=== PATIENT | female | born 1960 ===

== ENCOUNTER 2018-01-29 15:14 | Inpatient (IN) | payer MEDICAID, OTHER ==
[2018-01-29] MEDS ORDERED: Sodium Chloride 0.9% 1,000 ML IV SCH (17:00)
--- NOTE | 2018-01-29 17:10 | ED PDOC ---
Arrival/HPI - General Chief Complaint: GI Problem Time Seen by Provider: 01/29/18 16:31 - History of Present Illness Narrative History of Present Illness (Text): 57 yr old female w/ hx of HTN p/w bloody stools and abdominal pain. Pt notes abdominal pain x3 days, along with bloody stools. She notes intermittent bloody, non dark stools which do not fill the toilet bowel. No chest pain or shortness of breath. No constipation or diarrhea. No headache, nausea, vomiting, chest pain, fever, chills or night sweats. No trauma. No urinary complaints. No recent travel abroad or abx. No blood thinners. No other complaints. PMD: [place] Past Medical History - Infectious Disease Hx of Infectious Diseases: None - Tetanus Immunization Tetanus Immunization: Unknown - Reproductive Menopause: Yes - Cardiac Hx Hypertension: Yes Hx Pacemaker: No - Pulmonary Hx Respiratory Disorders: No - Neurological Hx Paralysis: No - Hematological/Oncological Hx Blood Transfusions: No Hx Blood Transfusion Reaction: No - Musculoskeletal/Rheumatological Hx Musculoskeletal Disorders: No - Gastrointestinal Hx Gastroesophageal Reflux: Yes - Psychiatric Hx Emotional Abuse: No Hx Physical Abuse: No Hx Substance Use: No - Anesthesia Hx Anesthesia Reactions: No Hx Malignant Hyperthermia: No - Suicidal Assessment Feels Threatened In Home Enviroment: No Family/Social History Family/Social History: Unknown Family HX Smoking Status: Never Smoked Hx Alcohol Use: No Hx Substance Use: No Hx Substance Use Treatment: No Allergies/Home Meds Allergies/Adverse Reactions: Allergies No Known Allergies Allergy (Verified 12/15/12 17:02) Home Medications: Home Meds Medication Instructions Recorded Confirmed Losartan/Hydrochlorothiazide 1 tab PO DAILY 11/19/15 11/19/15 [Losartan-Hctz 50-12.5 mg Tab] RX: Aspirin [Ecotrin] 81 mg PO DAILY 11/19/15 11/19/15 Review of Systems - Review of Systems Constitutional: absent: Fatigue, Weight Change, Fevers, Night Sweats Eyes: absent: Vision Changes ENT: absent: Hearing Changes Respiratory: absent: SOB Cardiovascular: absent: Chest Pain Gastrointestinal: Abdominal Pain, Stool Changes. absent: Constipation, Diarrhea, Nausea, Vomiting Genitourinary Female: Normal. absent: Dysuria, Frequency, Hematuria, Urine Output Changes, Vaginal Bleeding, Vaginal Discharge Musculoskeletal: Normal Skin: Normal. absent: Rash, Pruritis, Skin Lesions Neurological: Normal. absent: Headache, Dizziness Endocrine: Normal Physical Exam Vital Signs Temp Pulse Resp BP Pulse Ox 01/29/18 16:07 99.4 F 98 H 18 122/75 98 Temperature: Afebrile Blood Pressure: Normal Pulse: Regular Respiratory Rate: Normal Appearance: Positive for: Well-Appearing, Non-Toxic Pain Distress: None Mental Status: Positive for: Alert and Oriented X 3 - Systems Exam Head: Present: Atraumatic, Normocephalic Pupils: Present: PERRL Extroacular Muscles: Present: EOMI Conjunctiva: Present: Normal Ears: Present: Normal Mouth: Present: Moist Mucous Membranes Neck: Present: Normal Range of Motion. No: Meningeal Signs Respiratory/Chest: Present: Clear to Auscultation, Good Air Exchange. No: Respiratory Distress Cardiovascular: Present: Regular Rate and Rhythm, Normal S1, S2. No: Murmurs Abdomen: Present: Tenderness (suprapubic). No: Distention, Normal Bowel Sounds, Peritoneal Signs Rectal: Present: Normal Rectal Tone, Other (+guaic). No: Fissures, Nodule/Mass/Lesions Back: Present: Normal Inspection. No: CVA Tenderness Upper Extremity: Present: Normal Inspection. No: Cyanosis, Edema Lower Extremity: Present: Normal Inspection. No: Edema, CALF TENDERNESS Neurological: Present: GCS=15, CN II-XII Intact, Speech Normal, Normal Cerebellar Funct Skin: Present: Warm, Dry Psychiatric: Present: Alert, Oriented x 3, Normal Affect Medical Decision Making ED Course and Treatment: 57 yr old female p/w abdominal pain + diarrhea concerning for diverticulitis. No recent abx or trauma or blood thinners. pending imaging and labs 01/30/18 1900 Signed out to oncoming physician pending CT - RAD Interpretation Radiology Orders: 01/29/18 16:49 ABDOMEN & PELVIS [ABD & PELVIS IV CONTRAST ONLY] [CT] Stat - Medication Orders Current Medication Orders: Sodium Chloride (Sodium Chloride 0.9%) 1,000 mls @ 100 mls/hr IV .Q10H JAYSHREE Discontinued Medications Famotidine (Pepcid) 20 mg IVP STAT STA Stop: 01/29/18 16:53 Disposition/Present on Arrival - Present on Arrival Any Indicators Present on Arrival: No History of DVT/PE: No History of Uncontrolled Diabetes: No Urinary Catheter: No History of Decub. Ulcer: No History Surgical Site Infection Following: None - Disposition Have Diagnosis and Disposition been Completed?: Yes Diagnosis: Abdominal pain, Colitis, Leukocytosis Disposition: HOSPITALIZED Disposition Time: 07:00 Patient Problems: Current Active Problems Problem Status Onset Abdominal pain Acute Colitis Acute Leukocytosis Acute Condition: STABLE
--- NOTE | 2018-01-29 18:30 | CARD ---
APPROVED REPORT Date of service: 01/29/2018 EKG Measurement Heart [id number] <Conclusion> Normal sinus rhythm Normal ECG
[2018-01-29 18:46] LABS: BASO # 0.05 K/mm3 (0.0-2.0); BASO % 0.2 % (0.0-3.0); EOS % 0.1 % (1.5-5.0); GRAN # 16.7 (1.4-6.5); GRAN % 81.3 % (50.0-68.0); LYMPH # 2.5 (1.2-3.4); LYMPH % 12.2 % (22.0-35.0); MEAN CELL VOLUME 92.3 fl (80.0-105.0); MEAN CORPUSCULAR HEMOGLOBIN 30.8 pg (25.0-35.0); MEAN CORPUSCULAR HGB CONC 33.4 g/dl (31.0-37.0); MEAN PLATELET VOLUME 10.2 fl (7.0-11.0); MONO # 1.3 (0.1-0.6); MONO % 6.2 % (1.0-6.0); RBC 4.54 10^6/uL (3.5-6.1); RED CELL DISTRIBUTION WIDTH 13.6 % (11.5-14.5); WHITE BLOOD COUNT 20.6 10^3/ul (4.5-11.0)
[2018-01-29 18:56] LABS: ALB/GLOB RATIO 1.3 (1.1-1.8); ALBUMIN 4.3 g/dL (3.0-4.8); ALT/SGPT 30 U/L (7-56); AST/SGOT 43 U/L (14-36); BLOOD UREA NITROGEN 13 mg/dL (7-21); CALCIUM 9.7 mg/dL (8.4-10.5); GFR NON-AFRICAN AMERICAN > 60; LIPASE 67 U/L (23-300)
--- NOTE | 2018-01-29 19:40 | ED PDOC ---
Physical Exam Vital Signs Reviewed: Yes Vital Signs Temp Pulse Resp BP Pulse Ox 01/29/18 16:07 99.4 F 98 H 18 122/75 98 Temperature: Afebrile Blood Pressure: Normal Pulse: Regular Respiratory Rate: Normal Appearance: Positive for: Well-Appearing, Non-Toxic, Comfortable Pain Distress: None Mental Status: Positive for: Alert and Oriented X 3 - Systems Exam Head: Present: Atraumatic, Normocephalic Pupils: Present: PERRL Extroacular Muscles: Present: EOMI Conjunctiva: Present: Normal Mouth: Present: Moist Mucous Membranes Neck: Present: Normal Range of Motion Respiratory/Chest: Present: Clear to Auscultation, Good Air Exchange. No: Resp iratory Distress, Accessory Muscle Use Cardiovascular: Present: Regular Rate and Rhythm, Normal S1, S2. No: Murmurs Abdomen: Present: Tenderness (Suprapubic). No: Distention, Peritoneal Signs Back: Present: Normal Inspection Upper Extremity: Present: Normal Inspection. No: Cyanosis, Edema Lower Extremity: Present: Normal Inspection. No: Edema Neurological: Present: GCS=15, CN II-XII Intact, Speech Normal Skin: Present: Warm, Dry, Normal Color. No: Rashes Psychiatric: Present: Alert, Oriented x 3, Normal Insight, Normal Concentration Medical Decision Making ED Course and Treatment: 01/29/18 19:10 Case endorsed to me by Dr. Zamorano, for pending CT of Abdomen/pelvis, reassessment and final disposition. Patient is a 57 year old female, who presented to the Emergency Department earlier today complaining of abdominal pain since 3 days. Patient is currently resting in bed in no acute distress. Patient denies any new medical complaints. 01/29/18 23:22 CT Abdomen and Pelvis Impression: 1. Diffuse left-sided colitis, which could be infections or inflammatory in nature. No evidence of obstruction or perforation. 2. Diffuse scattered diverticulosis. No discrete evidence of focal diverticulitis. 3. Small amount of pelvic ascites. 01/29/18 23:[address] Brewer and nuclear medical tech, who agree with plan. Patient will be admitted to [facility] for colitis, abdominal pain, and leukocytosis under the hospitalist service. - Lab Interpretations Lab Results: 01/29/18 18:31 01/29/18 18:31 Lab Results 01/29/18 18:31: Sodium 141, Potassium 4.1, Chloride 103, Carbon Dioxide 30, Anion Gap 13, BUN 13, Creatinine 0.7, Est GFR ( Amer) > 60, Est GFR (Non- Af Amer) > 60, Random Glucose 92, Calcium 9.7, Magnesium 2.3 H, Total Bilirubin 1.2, AST 43 H, ALT 30, Alkaline Phosphatase 100, Total Protein 7.8, Albumin 4.3, Globulin 3.5, Albumin/Globulin Ratio 1.3, Lipase 67 01/29/18 18:31: WBC 20.6 H, RBC 4.54, Hgb 14.0, Hct 41.9, MCV 92.3, MCH 30.8, MCHC 33.4, RDW 13.6, Plt Count 295, MPV 10.2, Gran % 81.3 H, Lymph % (Auto) 12.2 L, [place] % (Auto) 6.2 H, Eos % (Auto) 0.1 L, Baso % (Auto) 0.2, Gran # 16.70 H, Lymph # (Auto) 2.5, [place] # (Auto) 1.3 H, Eos # (Auto) 0.0, Baso # (Auto) 0.05 I have reviewed the lab results: Yes - RAD Interpretation Radiology Orders: 01/29/18 16:49 ABDOMEN & PELVIS [ABD & PELVIS IV CONTRAST ONLY] [CT] Stat Editor Newspaper: Radiologist - Medication Orders Current Medication Orders: Sodium Chloride (Sodium Chloride 0.9%) 1,000 mls @ 100 mls/hr IV .Q10H JAYSHREE Last Admin: 01/29/18 18:15 Dose: 100 mls/hr eMAR Start Stop Document 01/29/18 18:15 BB (Rec: 01/29/18 18:36 [id number]) Intravenous Solution Start Date 01/29/18 Start Time 18:15 End Date 01/29/18 Discontinued Medications Famotidine (Pepcid) 20 mg IVP STAT STA Stop: 01/29/18 16:53 Last Admin: 01/29/18 18:36 Dose: 20 mg IVP Administration Document 01/29/18 18:36 BB (Rec: 01/29/18 18:36 [id number]) Charges for Administration # of IVP Administrations 1 - Scribe Statement The provider has reviewed the documentation as recorded by the Scribcece Osorio. All medical record entries made by the Gabrielle were at my direction and personally dictated by me. I have reviewed the chart and agree that the record accurately reflects my personal performance of the history, physical exam, medical decision making, and the department course for this patient. I have also personally directed, reviewed, and agree with the discharge instructions and disposition. Disposition/Present on Arrival - Present on Arrival Any Indicators Present on Arrival: No History of DVT/PE: No History of Uncontrolled Diabetes: No Urinary Catheter: No History of Decub. Ulcer: No History Surgical Site Infection Following: None - Disposition Have Diagnosis and Disposition been Completed?: Yes Diagnosis: Abdominal pain, Colitis, Leukocytosis Disposition: HOSPITALIZED Disposition Time: 23:40 Patient Plan: Admission Patient Problems: Current Active Problems Problem Status Onset Abdominal pain Acute Colitis Acute Leukocytosis Acute Condition: STABLE
[2018-01-29] MEDS ORDERED: cefTRIAXone 1 gm 1 GM/100 ML BAG IV STA (19:51)
[2018-01-29] MEDS ORDERED: metroNIDAZOLE IV 500 mg/100 ml 500 MG/100 ML BAG IVPB STA (19:52)
[2018-01-29] MEDS ORDERED: Iohexol 350 MG/100 ML VIAL ONE (20:37)
[2018-01-29 22:16] LABS: URINE BILIRUBIN NEGATIVE (NEGATIVE); URINE BLOOD NEGATIVE (NEGATIVE); URINE GLUCOSE (UA) NEGATIVE (NEGATIVE); URINE LEUKOCYTE ESTERASE TRACE Leu/uL (NEGATIVE); URINE PROTEIN NEGATIVE mg/dL (<30 mg/dL); URINE UROBILINOGEN 0.2 E.U./dL (<1 E.U./dL)
[2018-01-29 22:22] LABS: URINE APPEARANCE CLEAR (CLEAR); URINE COLOR YELLOW (YELLOW)
--- NOTE | 2018-01-30 01:20 | CP.PCM.HP ---
<Rupert Galeas - Last Filed: 01/30/18 04:17> History of Present Illness - History of Present Illness History of Present Illness: Rupert Galeas, PGY-1 History and Physical for Hospitalist Service CC: Abdominal Pain HPI: 57 yr old female w/ hx of HTN p/w bloody stools and abdominal pain. Pt note s abdominal pain that began Monday night and resolved Monday afternoon, during which point she experienced 15 episodes of bloody stools. She notes intermittent bloody, non dark stools which do not fill the toilet bowl and are associated with clots. Patient reports chills as well as a 9 lb weight loss in 4 months. Patient visited her PCP who urged her to come be evaluated in the ED Patient denies appetite, chest pain, shortness of breath, dizziness, headaches, nausea, vomiting, leg pain, rashes No recent travel abroad/trauma/abx use. No blood thinners. No other complaints. Patient has never had an endoscopy performed but underwent a colonoscopy in 2013 with [address] reported results[address] Abd/Pelvis shows diffuse left sided colitis [infx or inflamm]. No evidence of obstruction/perforation. Diffuse diverticulosis. No discrete evidence of focal diverticulitis. Small amount of pelvic ascites. PMHx: HTN PSHx:C section All: NKDA Social: Denies ETOH, tobacco and substance abuse Fam hx: Dad and brother have HTN Meds: Biotin, Losartan 50 mg Present on Admission - Present on Admission Any Indicators Present on Admission: No Review of Systems - Review of Systems Review of Systems: 12 point ROS were completed except as described in HPI. Past Patient History - Infectious Disease Hx of Infectious Diseases: None - Tetanus Immunizations Tetanus Immunization: Unknown - Past Social History Smoking Status: Never Smoked - CARDIAC Hx Hypertension: Yes Hx Pacemaker: No - PULMONARY Hx Respiratory Disorders: No - NEUROLOGICAL Hx Paralysis: No - HEMATOLOGICAL/ONCOLOGICAL Hx Blood Transfusions: No Hx Blood Transfusion Reaction: No - MUSCULOSKELETAL/RHEUMATOLOGICAL Hx Musculoskeletal Disorders: No - GASTROINTESTINAL Hx Gastroesophageal Reflux: Yes - PSYCHIATRIC Hx Emotional Abuse: No Hx Physical Abuse: No Hx Substance Use: No - SURGICAL HISTORY Hx Surgeries: Yes - ANESTHESIA Hx Anesthesia Reactions: No Hx Malignant Hyperthermia: No Meds Allergies/Adverse Reactions: Allergies Allergy/AdvReac Type Severity Reaction Status Date / Time No Known Allergies Allergy Verified 08/24/13 17:02 Physical Exam - Constitutional Appears: Well, Non-toxic, No Acute Distress - Head Exam Head Exam: ATRAUMATIC, NORMAL INSPECTION, NORMOCEPHALIC - Eye Exam Eye Exam: EOMI, Normal appearance, PERRL Pupil Exam: PERRL - ENT Exam ENT Exam: Mucous Membranes Moist, Normal Exam - Neck Exam Neck exam: Positive for: Normal Inspection - Respiratory Exam Respiratory Exam: Clear to Auscultation Bilateral, NORMAL BREATHING PATTERN. absent: Rales, Rhonchi, Wheezes - Cardiovascular Exam Cardiovascular Exam: RRR, +S1, +S2 - GI/Abdominal Exam GI & Abdominal Exam: Normal Bowel Sounds, Soft. absent: Distended, Firm, Guarding, Tenderness - Rectal Exam Rectal Exam: absent: Bloody Stool, Hemorrhoids, Fecal Impaction Additional comments: no stool noted in vault - Extremities Exam Extremities exam: Positive for: normal inspection. Negative for: calf tenderness - Back Exam Back exam: CVA tenderness (L) (minor pain). absent: CVA tenderness (R) - Neurological Exam Neurological exam: Alert, CN II-XII Intact, Normal Gait, Oriented x3 - Psychiatric Exam Psychiatric exam: Normal Affect, Normal Mood - Skin Skin Exam: Dry, Normal Color, Warm Results - Vital Signs Recent Vital Signs: Last Vital Signs Temp 99.4 F 01/29/18 16:07 Pulse 80 01/30/18 00:46 Resp 18 01/30/18 00:46 BP 122/70 01/30/18 00:46 Pulse Ox 100 01/30/18 00:46 - Labs Result Diagrams: 01/29/18 18:31 01/29/18 18:31 Labs: Laboratory Results - last 24 hr 01/29/18 01/29/18 01/29/18 18:31 18:31 21:40 WBC 20.6 H RBC 4.54 Hgb 14.0 Hct 41.9 MCV 92.3 MCH 30.8 MCHC 33.4 RDW 13.6 Plt Count 295 MPV 10.2 Gran % 81.3 H Lymph % (Auto) 12.2 L Gage % (Auto) 6.2 H Eos % (Auto) 0.1 L Baso % (Auto) 0.2 Gran # 16.70 H Lymph # (Auto) 2.5 Gage # (Auto) 1.3 H Eos # (Auto) 0.0 Baso # (Auto) 0.05 Sodium 141 Potassium 4.1 Chloride 103 Carbon Dioxide 30 Anion Gap 13 BUN 13 Creatinine 0.7 Est GFR ( Amer) > 60 Est GFR (Non-Af Amer) > 60 Random Glucose 92 Calcium 9.7 Magnesium 2.3 H Total Bilirubin 1.2 AST 43 H ALT 30 Alkaline Phosphatase 100 Total Protein 7.8 Albumin 4.3 Globulin 3.5 Albumin/Globulin Ratio 1.3 Lipase 67 Urine Color Yellow Urine Appearance Clear Urine pH 6.0 Ur Specific [place] 1.010 Urine Protein Negative Urine Glucose (UA) Negative Urine Ketones 40 H Urine Blood Negative Urine Nitrate Negative Urine Bilirubin Negative Urine Urobilinogen 0.2 Ur Leukocyte Esterase Trace H Urine RBC TEST NOT PERFORMED Urine WBC 5 - 10 Ur Epithelial Cells 6 - 8 Assessment & Plan - Assessment and Plan (Free Text) Assessment: Assessment: 57 F with PMHx of HTN who presents with 15 episodes of bloody bowel movements. CT abd pelvis showed colitis and diverticulosis of L side. Plan: Colitis/Diverticulosis f/u blood and urine cx Metro 500 IVPB q8h and Ceftriaxone 1 gm IVPB daily received Metro and Cef in ED NS @100 cc/hr, NPO GI consult - Dr. Daniel- recommendations for scope appreciated f/u rapid flu and procal level Bloody diarrhea f/u AM labs f/u stool culture, electrolyte studies and c. diff toxin FOBT negative card 1371 8R 08-20 GI/DVT ppx Protonix 40 IVp daily SCDs Patient seen, case reviewed, and plan discussed with Dr. Brewer, attending. Rupert Galeas, PGY-1 <Liza Brewer - Last Filed: 01/30/18 06:48> Results - Vital Signs Recent Vital Signs: Last Vital Signs Temp 99.4 F 01/29/18 16:07 Pulse 80 01/30/18 00:46 Resp 18 01/30/18 00:48 BP 122/70 01/30/18 00:46 Pulse Ox 100 01/30/18 00:46 - Labs Result Diagrams: 01/29/18 18:31 01/29/18 18:31 Labs: Laboratory Results - last 24 hr 01/29/18 01/29/18 01/29/18 18:31 18:31 21:40 WBC 20.6 H RBC 4.54 Hgb 14.0 Hct 41.9 MCV 92.3 MCH 30.8 MCHC 33.4 RDW 13.6 Plt Count 295 MPV 10.2 Gran % 81.3 H Lymph % (Auto) 12.2 L Gage % (Auto) 6.2 H Eos % (Auto) 0.1 L Baso % (Auto) 0.2 Gran # 16.70 H Lymph # (Auto) 2.5 Gage # (Auto) 1.3 H Eos # (Auto) 0.0 Baso # (Auto) 0.05 Sodium 141 Potassium 4.1 Chloride 103 Carbon Dioxide 30 Anion Gap 13 BUN 13 Creatinine 0.7 Est GFR ( Amer) > 60 Est GFR (Non-Af Amer) > 60 Random Glucose 92 Calcium 9.7 Magnesium 2.3 H Total Bilirubin 1.2 AST 43 H ALT 30 Alkaline Phosphatase 100 Total Protein 7.8 Albumin 4.3 Globulin 3.5 Albumin/Globulin Ratio 1.3 Lipase 67 Urine Color Yellow Urine Appearance Clear Urine pH 6.0 Ur Specific [place] 1.010 Urine Protein Negative Urine Glucose (UA) Negative Urine Ketones 40 H Urine Blood Negative Urine Nitrate Negative Urine Bilirubin Negative Urine Urobilinogen 0.2 Ur Leukocyte Esterase Trace H Urine RBC TEST NOT PERFORMED Urine WBC 5 - 10 Ur Epithelial Cells 6 - 8 Attending/Attestation - Attestation I have personally seen and examined this patient.: Yes I have fully participated in the care of the patient.: Yes I have reviewed all pertinent clinical information: Yes Notes (Text): 01/30/18 06:47 Patient was seen when she was in [id number] Agree with history,physical examination, assessment and plan.
[2018-01-30 03:10] VITALS: BMI 22.8
[2018-01-30] MEDS: metroNIDAZOLE IV 500 mg/100 ml 500 MG/100 ML BAG IVPB SCH ×3 (05:24→21:09)
[2018-01-30] MEDS: Sodium Chloride 0.9% 1,000 ML IV SCH ×2 (05:24→21:09)
[2018-01-30 07:08] LABS: BASO # 0.05 K/mm3 (0.0-2.0); BASO % 0.3 % (0.0-3.0); EOS # 0.1 (0.0-0.7); EOS % 0.6 % (1.5-5.0); GRAN # 13.9 (1.4-6.5); GRAN % 78.5 % (50.0-68.0); HEMOGLOBIN 12.3 g/dL (12.0-16.0); LYMPH # 2.3 (1.2-3.4); MEAN CORPUSCULAR HEMOGLOBIN 29.7 pg (25.0-35.0); MEAN CORPUSCULAR HGB CONC 31.9 g/dl (31.0-37.0); MEAN PLATELET VOLUME 9.9 fl (7.0-11.0); MONO # 1.3 (0.1-0.6); MONO % 7.6 % (1.0-6.0); RBC 4.14 10^6/uL (3.5-6.1); RED CELL DISTRIBUTION WIDTH 13.8 % (11.5-14.5); WHITE BLOOD COUNT 17.7 10^3/ul (4.5-11.0)
[2018-01-30 07:40] LABS: ALBUMIN 3.5 g/dL (3.0-4.8); BLOOD UREA NITROGEN 14 mg/dL (7-21); CALCIUM 8.8 mg/dL (8.4-10.5); GFR NON-AFRICAN AMERICAN > 60
[2018-01-30 07:41] LABS: ALB/GLOB RATIO 1.2 (1.1-1.8); ALT/SGPT 29 U/L (7-56); AST/SGOT 29 U/L (14-36)
--- NOTE | 2018-01-30 10:08 | CT ---
Date of service: 01/29/2018 PROCEDURE: CT Abdomen and Pelvis with contrast HISTORY: abd pain, llq COMPARISON: None. TECHNIQUE: Contrast dose: 100 cc of Omni 350 Radiation dose: Total exam DLP = 379 mGy-cm. This CT exam was performed using one or more of the following dose reduction techniques: Automated exposure control, adjustment of the mA and/or kV according to patient size, and/or use of iterative reconstruction technique. FINDINGS: LOWER THORAX: Unremarkable. LIVER: Unremarkable. No gross lesion or ductal dilatation. GALLBLADDER AND BILE DUCTS: Unremarkable. PANCREAS: Unremarkable. No gross lesion or ductal dilatation. SPLEEN: Unremarkable. ADRENALS: Unremarkable. No mass. KIDNEYS AND URETERS: Unremarkable. No hydronephrosis. No solid mass. VASCULATURE: Unremarkable. No aortic aneurysm. BOWEL: There is severe mural thickening throughout the descending colon and splenic flexure consistent with colitis. APPENDIX: Normal appendix. PERITONEUM: Minimal ascites LYMPH NODES: Unremarkable. No enlarged lymph nodes. BLADDER: Unremarkable. REPRODUCTIVE: Unremarkable. BONES: No acute fracture. OTHER FINDINGS: The report concurs with the preliminary [facility] report IMPRESSION: There is severe mural thickening throughout the descending colon and splenic flexure consistent with colitis.
[2018-01-30] MEDS: cefTRIAXone 1 gm 1 GM/100 ML BAG IVPB SCH (10:12)
--- NOTE | 2018-01-30 16:43 | CP.PCM.CON ---
<Fazal Purcell - Last Filed: 01/30/18 19:30> History of Present Illness - History of Present Illness History of Present Illness: Kang Purcell DO PGY2, IM Resident - GI Consult Note for Dr. Daniel Consult Reason: Bloody BM, Colitis HPI: 57 year old female with past medical history of HTN who presented to [facility] [place] with abdominal pain and reported short history of bloody bowel movements over a period for 24 hours. She indicates bloody bowel movements occurring between Monday and Monday. She indicates the bloody stool was red, non-melena, with clots identified. Patient denies dizziness, shortness of breath, headache, chest pain, nausea, vomiting, appetite loss. She indicates no previous episodes similar to her presentation. She reports a colonoscopy in 2013 without abnormal results according to her. She denies previous endoscopy. PMH: HTN PSH: SOCHX: Denies tobacco, ETOH, ID ALL: NKDA MEDS: Losartan 50mg Review of Systems - Review of Systems All systems: reviewed and no additional remarkable complaints except (as mentioned in HPI) Past Patient History - Infectious Disease Hx of Infectious Diseases: None - Tetanus Immunizations Tetanus Immunization: Unknown - Past Social History Smoking Status: Never Smoked - CARDIAC Hx Hypertension: Yes Hx Pacemaker: No - PULMONARY Hx Respiratory Disorders: No - NEUROLOGICAL Hx Paralysis: No - HEENT Hx HEENT Problems: No - RENAL Hx Chronic Kidney Disease: No - ENDOCRINE/METABOLIC Hx Endocrine Disorders: No - HEMATOLOGICAL/ONCOLOGICAL Hx Blood Transfusions: No Hx Blood Transfusion Reaction: No - INTEGUMENTARY Hx Dermatological Problems: No - MUSCULOSKELETAL/RHEUMATOLOGICAL Hx Musculoskeletal Disorders: No - GASTROINTESTINAL Hx Gastroesophageal Reflux: Yes - GENITOURINARY/GYNECOLOGICAL Hx Genitourinary Disorders: No - PSYCHIATRIC Hx Emotional Abuse: No Hx Physical Abuse: No Hx Substance Use: No - SURGICAL HISTORY Hx Surgeries: Yes - ANESTHESIA Hx Anesthesia Reactions: No Hx Malignant Hyperthermia: No Meds Allergies/Adverse Reactions: Allergies Allergy/AdvReac Type Severity Reaction Status Date / Time No Known Allergies Allergy Verified 12/15/12 17:02 - Medications Medications: Current Medications Metronidazole (Flagyl) 500 mg in 100 mls @ 100 mls/hr IVPB Q8 JAYSHREE; Protocol Last Admin: 01/30/18 15:01 Dose: 100 mls/hr Ceftriaxone Sodium (Rocephin 1 Gram Ivpb) 1 gm in 100 mls @ 100 mls/hr IVPB DAILY JAYSHREE; Protocol Last Admin: 01/30/18 10:12 Dose: 100 mls/hr Sodium Chloride (Sodium Chloride 0.9%) 1,000 mls @ 100 mls/hr IV .Q10H JAYSHREE Last Admin: 01/30/18 05:24 Dose: 100 mls/hr Pantoprazole Sodium (Protonix Inj) 40 mg IVP DAILY JAYSHREE Last Admin: 01/30/18 10:12 Dose: 40 mg Physical Exam - Constitutional Appears: No Acute Distress - Head Exam Head Exam: ATRAUMATIC, NORMAL INSPECTION, NORMOCEPHALIC - Eye Exam Eye Exam: EOMI, PERRL - ENT Exam ENT Exam: Mucous Membranes Moist - Neck Exam Neck exam: Positive for: Full Rom - Respiratory Exam Respiratory Exam: Clear to Auscultation Bilateral, NORMAL BREATHING PATTERN. absent: Rhonchi, Wheezes - Cardiovascular Exam Cardiovascular Exam: REGULAR RHYTHM, +S1, +S2 - GI/Abdominal Exam GI & Abdominal Exam: Soft, Tenderness (left sided upon palpation ) - Rectal Exam Additional comments: No bloody stool present, no hemorrhoids appreciated, no fissure appreciated - Extremities Exam Extremities exam: Positive for: normal inspection - Neurological Exam Neurological exam: Alert, CN II-XII Intact, Normal Gait, Oriented x3 - Psychiatric Exam Psychiatric exam: Normal Affect, Normal Mood - Skin Skin Exam: Dry, Intact Results - Vital Signs Recent Vital Signs: Last Vital Signs Temp 98.3 F 01/30/18 14:00 Pulse 83 01/30/18 14:00 Resp 100 H 01/30/18 14:00 BP 104/60 01/30/18 14:00 Pulse Ox 98 01/30/18 06:00 - Labs Result Diagrams: 01/30/18 06:30 01/30/18 06:30 Labs: Laboratory Results - last 24 hr 01/29/18 01/29/18 01/29/18 18:31 18:31 21:40 WBC 20.6 H RBC 4.54 Hgb 14.0 Hct 41.9 MCV 92.3 MCH 30.8 MCHC 33.4 RDW 13.6 Plt Count 295 MPV 10.2 Gran % 81.3 H Lymph % (Auto) 12.2 L [place] % (Auto) 6.2 H Eos % (Auto) 0.1 L Baso % (Auto) 0.2 Gran # 16.70 H Lymph # (Auto) 2.5 [place] # (Auto) 1.3 H Eos # (Auto) 0.0 Baso # (Auto) 0.05 Sodium 141 Potassium 4.1 Chloride 103 Carbon Dioxide 30 Anion Gap 13 BUN 13 Creatinine 0.7 Est GFR ( Amer) > 60 Est GFR (Non-Af Amer) > 60 Random Glucose 92 Calcium 9.7 Phosphorus Magnesium 2.3 H Total Bilirubin 1.2 AST 43 H ALT 30 Alkaline Phosphatase 100 Total Protein 7.8 Albumin 4.3 Globulin 3.5 Albumin/Globulin Ratio 1.3 Lipase 67 Urine Color Yellow Urine Appearance Clear Urine pH 6.0 Ur Specific [place] 1.010 Urine Protein Negative Urine Glucose (UA) Negative Urine Ketones 40 H Urine Blood Negative Urine Nitrate Negative Urine Bilirubin Negative Urine Urobilinogen 0.2 Ur Leukocyte Esterase Trace H Urine RBC TEST NOT PERFORMED Urine WBC 5 - 10 Ur Epithelial Cells 6 - 8 01/30/18 01/30/18 06:30 06:30 WBC 17.7 H RBC 4.14 Hgb 12.3 Hct 38.5 MCV 93.0 MCH 29.7 MCHC 31.9 RDW 13.8 Plt Count 268 MPV 9.9 Gran % 78.5 H Lymph % (Auto) 13.0 L [place] % (Auto) 7.6 H Eos % (Auto) 0.6 L Baso % (Auto) 0.3 Gran # 13.90 H Lymph # (Auto) 2.3 [place] # (Auto) 1.3 H Eos # (Auto) 0.1 Baso # (Auto) 0.05 Sodium 141 Potassium 4.0 Chloride 106 Carbon Dioxide 27 Anion Gap 11 BUN 14 Creatinine 0.7 Est GFR ( Amer) > 60 Est GFR (Non-Af Amer) > 60 Random Glucose 80 Calcium 8.8 Phosphorus 3.8 Magnesium 2.2 Total Bilirubin 1.1 AST 29 ALT 29 Alkaline Phosphatase 88 Total Protein 6.4 Albumin 3.5 Globulin 2.9 Albumin/Globulin Ratio 1.2 Lipase Urine Color Urine Appearance Urine pH Ur Specific [place] Urine Protein Urine Glucose (UA) Urine Ketones Urine Blood Urine Nitrate Urine Bilirubin Urine Urobilinogen Ur Leukocyte Esterase Urine RBC Urine WBC Ur Epithelial Cells Assessment & Plan - Assessment and Plan (Free Text) Assessment: 57 year old female with past medical history of HTN with recent history of bloody bowel movements who was evaluated to have colitis as evidence by abdominal/pelvis CT. Plan: Colitis HTN - CT/Abd Pelvis: diffuse left sided colitis, no obstruction, Diffuse diverticulosis. No discrete evidence of focal diverticulitis. Small amount of pelvic ascites - Clear liquid diet with plans to advance as tolerated - Continue antibiotics as per primary - H/H stable, continue to monitor - Further recommendations per Dr. Daniel - Date & Time Date: 01/30/18 Time: 11:00 <Tien Daniel V - Last Filed: 01/30/18 22:54> Meds - Medications Medications: Current Medications Metronidazole (Flagyl) 500 mg in 100 mls @ 100 mls/hr IVPB Q8 JAYSHREE; Protocol Last Admin: 01/30/18 21:09 Dose: 100 mls/hr Ceftriaxone Sodium (Rocephin 1 Gram Ivpb) 1 gm in 100 mls @ 100 mls/hr IVPB DAILY JAYSHREE; Protocol Last Admin: 01/30/18 10:12 Dose: 100 mls/hr Sodium Chloride (Sodium Chloride 0.9%) 1,000 mls @ 100 mls/hr IV .Q10H JAYSHREE Last Admin: 01/30/18 21:09 Dose: 100 mls/hr Pantoprazole Sodium (Protonix Inj) 40 mg IVP DAILY JAYSHREE Last Admin: 01/30/18 10:12 Dose: 40 mg Results - Vital Signs Recent Vital Signs: Last Vital Signs Temp 99.2 F 01/30/18 22:39 Pulse 82 01/30/18 22:39 Resp 18 01/30/18 22:39 BP 111/67 01/30/18 22:39 Pulse Ox 95 01/30/18 22:39 - Labs Result Diagrams: 01/30/18 06:30 01/30/18 06:30 Labs: Laboratory Results - last 24 hr 01/29/18 01/30/18 01/30/18 17:15 06:30 06:30 WBC 17.7 H RBC 4.14 Hgb 12.3 Hct 38.5 MCV 93.0 MCH 29.7 MCHC 31.9 RDW 13.8 Plt Count 268 MPV 9.9 Gran % 78.5 H Lymph % (Auto) 13.0 L [place] % (Auto) 7.6 H Eos % (Auto) 0.6 L Baso % (Auto) 0.3 Gran # 13.90 H Lymph # (Auto) 2.3 [place] # (Auto) 1.3 H Eos # (Auto) 0.1 Baso # (Auto) 0.05 Sodium 141 Potassium 4.0 Chloride 106 Carbon Dioxide 27 Anion Gap 11 BUN 14 Creatinine 0.7 Est GFR ( Amer) > 60 Est GFR (Non-Af Amer) > 60 Random Glucose 80 Calcium 8.8 Phosphorus 3.8 Magnesium 2.2 Total Bilirubin 1.1 AST 29 ALT 29 Alkaline Phosphatase 88 Total Protein 6.4 Albumin 3.5 Globulin 2.9 Albumin/Globulin Ratio 1.2 Procalcitonin 0.10 L Attending/Attestation - Attestation I have personally seen and examined this patient.: Yes I have fully participated in the care of the patient.: Yes I have reviewed all pertinent clinical information: Yes Notes (Text): This is an addendum to GI followup report dictated by the Rubber Cutting Machine Tender. The patient was seen and evaluated earlier. Medical records, lab studies, imagings were reviewed. Last 24 hours events reviewed. Agreed with the above treatment plan as outlined in Rubber Cutting Machine Tender 's notes with the addition of the following Patient : No knownhad acute onset of abdominal pain diarrhea bleeding per rectum CT scan was reviewed Clinically correlate is etiology ischemic versus infectious versus inflammatory Continue antibiotics Stool for culture Clear liquid diet Elective colonoscopy 01/30/18 22:52
[2018-01-31] MEDS: metroNIDAZOLE IV 500 mg/100 ml 500 MG/100 ML BAG IVPB SCH ×3 (05:59→21:37)
[2018-01-31 07:20] LABS: BASO # 0.03 K/mm3 (0.0-2.0); BASO % 0.2 % (0.0-3.0); EOS # 0.1 (0.0-0.7); EOS % 0.9 % (1.5-5.0); GRAN # 11.7 (1.4-6.5); GRAN % 79.6 % (50.0-68.0); HEMOGLOBIN 11.8 g/dL (12.0-16.0); LYMPH # 1.9 (1.2-3.4); LYMPH % 13.2 % (22.0-35.0); MEAN CELL VOLUME 91.9 fl (80.0-105.0); MEAN CORPUSCULAR HEMOGLOBIN 29.9 pg (25.0-35.0); MEAN CORPUSCULAR HGB CONC 32.6 g/dl (31.0-37.0); MEAN PLATELET VOLUME 9.8 fl (7.0-11.0); MONO # 0.9 (0.1-0.6); MONO % 6.1 % (1.0-6.0); RBC 3.94 10^6/uL (3.5-6.1); RED CELL DISTRIBUTION WIDTH 13.6 % (11.5-14.5); WHITE BLOOD COUNT 14.7 10^3/ul (4.5-11.0)
[2018-01-31 07:44] LABS: ALB/GLOB RATIO 1.1 (1.1-1.8); ALBUMIN 3.2 g/dL (3.0-4.8); ALT/SGPT 25 U/L (7-56); AST/SGOT 33 U/L (14-36); BLOOD UREA NITROGEN 11 mg/dL (7-21); CALCIUM 8.5 mg/dL (8.4-10.5); GFR NON-AFRICAN AMERICAN > 60
[2018-01-31] MEDS: cefTRIAXone 1 gm 1 GM/100 ML BAG IVPB SCH (09:46)
--- NOTE | 2018-01-31 11:30 | CP.PCM.PN ---
<Tiara Ventura - Last Filed: 01/31/18 15:53> Subjective - Date & Time of Evaluation Date of Evaluation: 01/31/18 Time of Evaluation: 10:40 - Subjective Subjective: S&E at bedside, chart reviewed. No acute overnight events reported. No N/V , fever or chills, Abdominal pain improving, only increase pain when palpated. BM is "pasty" notice streak of blood in toliet this am, No BM last night. Tolerating clear liquids, feel "gassy" after eating. Objective - Vital Signs/Intake and Output Vital Signs (last 24 hours): Temp Pulse Resp BP Pulse Ox 98.4 F 72 20 113/70 97 01/31/18 06:00 01/31/18 06:00 01/31/18 06:00 01/31/18 06:00 01/31/18 06:00 Intake and Output: 01/31/18 01/31/18 06:59 18:59 Intake Total 2940 600 Balance 2940 600 - Medications Medications: Current Medications Metronidazole (Flagyl) 500 mg in 100 mls @ 100 mls/hr IVPB Q8 JAYSHREE; Protocol Last Admin: 01/31/18 05:59 Dose: 100 mls/hr Ceftriaxone Sodium (Rocephin 1 Gram Ivpb) 1 gm in 100 mls @ 100 mls/hr IVPB DAILY JAYSHREE; Protocol Last Admin: 01/31/18 09:46 Dose: 100 mls/hr Sodium Chloride (Sodium Chloride 0.9%) 1,000 mls @ 100 mls/hr IV .Q10H JAYSHREE Last Admin: 01/30/18 21:09 Dose: 100 mls/hr Pantoprazole Sodium (Protonix Inj) 40 mg IVP DAILY JAYSHREE Last Admin: 01/31/18 09:46 Dose: 40 mg - Labs Labs: 01/31/18 06:40 01/31/18 06:40 - Constitutional Appears: No Acute Distress - Head Exam Head Exam: NORMOCEPHALIC - Eye Exam Eye Exam: Normal appearance. absent: Scleral icterus - ENT Exam ENT Exam: Mucous Membranes Moist - Neck Exam Neck Exam: Normal Inspection - Respiratory Exam Respiratory Exam: Clear to Ausculation Bilateral, NORMAL BREATHING PATTERN. absent: Respiratory Distress - Cardiovascular Exam Cardiovascular Exam: +S1, +S2 - GI/Abdominal Exam GI & Abdominal Exam: Soft, Normal Bowel Sounds. absent: Guarding, Tenderness, Rebound - Extremities Exam Extremities Exam: absent: Calf Tenderness, Pedal Edema - Neurological Exam Neurological Exam: Alert, Awake, Oriented x3 - Skin Skin Exam: Dry, Warm Assessment and Plan - Assessment and Plan (Free Text) Assessment: ASSESSMENT: Colitis HTN PLAN - CT/Abd Pelvis: diffuse left sided colitis, no obstruction, Diffuse diverticulosis. No discrete evidence of focal diverticulitis. Small amount of pelvic ascites - Clear liquid diet, will advance dinner to full liquids - Continue antibiotics as per primary - H/H stable, continue to monitor - FU stool studies: cdiff/culture - elective outpt colonoscopy. Seen and discussed w/ Dr. Daniel. <Tien Daniel V - Last Filed: 01/31/18 23:53> Objective - Vital Signs/Intake and Output Vital Signs (last 24 hours): Temp Pulse Resp BP Pulse Ox 98 F 79 16 131/80 97 01/31/18 22:00 01/31/18 22:00 01/31/18 22:00 01/31/18 22:00 01/31/18 22:00 Intake and Output: 01/31/18 02/01/18 18:59 06:59 Intake Total 600 480 Balance 600 480 - Medications Medications: Current Medications Metronidazole (Flagyl) 500 mg in 100 mls @ 100 mls/hr IVPB Q8 JAYSHREE; Protocol Last Admin: 01/31/18 21:37 Dose: 100 mls/hr Ceftriaxone Sodium (Rocephin 1 Gram Ivpb) 1 gm in 100 mls @ 100 mls/hr IVPB DAILY JAYSHREE; Protocol Last Admin: 01/31/18 09:46 Dose: 100 mls/hr Pantoprazole Sodium (Protonix Inj) 40 mg IVP DAILY JAYSHREE Last Admin: 01/31/18 09:46 Dose: 40 mg - Labs Labs: 01/31/18 06:40 01/31/18 06:40 Attending/Attestation - Attestation I have personally seen and examined this patient.: Yes I have fully participated in the care of the patient.: Yes I have reviewed all pertinent clinical information, including history, physical exam and plan: Yes Notes (Text): This is an addendum to GI progress report dictated by Tiara Ventura APN.The patient was seen and examined earlier. Medical records, lab studies, imagings were reviewed. Last 24 hours events reviewed. Agreed with the above treatment plan as outlined in Tiara Ventura APN's notes with the addition of the following Feels better on cipro and flagyl and will change the cipro to levaquin On full liquid diet will advance to soft diet 01/31/18 23:52
[2018-01-31] MEDS: Sodium Chloride 0.9% 1,000 ML IV SCH (13:20)
--- NOTE | 2018-01-31 20:43 | CP.PCM.PN ---
<Randall Batres - Last Filed: 01/31/18 20:39> Subjective - Date & Time of Evaluation Date of Evaluation: 01/31/18 Time of Evaluation: 07:00 - Subjective Subjective: Randall Batres DO PGY1 - Internal Medicine Curriculum Director - Hospital Progress Note Patient seen and examined at bedside this morning. Reports her abdominal pain is improving this AM. Denies any F, Chills, SOB, Cough, CP, Palpitations, N/V Patient did have BM this AM did not describe it as watery. Tolerating diet well at this time. Objective - Vital Signs/Intake and Output Vital Signs (last 24 hours): Temp Pulse Resp BP Pulse Ox 98 F 83 18 131/78 96 01/31/18 14:00 01/31/18 14:00 01/31/18 14:00 01/31/18 14:00 01/31/18 14:00 Intake and Output: 01/31/18 02/01/18 18:59 06:59 Intake Total 600 480 Balance 600 480 - Medications Medications: Current Medications Metronidazole (Flagyl) 500 mg in 100 mls @ 100 mls/hr IVPB Q8 JAYSHREE; Protocol Last Admin: 01/31/18 13:19 Dose: 100 mls/hr Ceftriaxone Sodium (Rocephin 1 Gram Ivpb) 1 gm in 100 mls @ 100 mls/hr IVPB DAILY JAYSHREE; Protocol Last Admin: 01/31/18 09:46 Dose: 100 mls/hr Pantoprazole Sodium (Protonix Inj) 40 mg IVP DAILY JAYSHREE Last Admin: 01/31/18 09:46 Dose: 40 mg - Labs Labs: 01/31/18 06:40 01/31/18 06:40 - Constitutional Appears: Well, Non-toxic, No Acute Distress - Head Exam Head Exam: ATRAUMATIC, NORMOCEPHALIC - Eye Exam Eye Exam: EOMI, Normal appearance, PERRL - ENT Exam ENT Exam: Mucous Membranes Moist - Respiratory Exam Respiratory Exam: Clear to Ausculation Bilateral, NORMAL BREATHING PATTERN. absent: Rales, Wheezes - Cardiovascular Exam Cardiovascular Exam: REGULAR RHYTHM, RRR, +S1, +S2. absent: Murmur - GI/Abdominal Exam GI & Abdominal Exam: Soft, Tenderness (minimal-mild tenderness along L periumbilcal region), Normal Bowel Sounds - Extremities Exam Extremities Exam: absent: Pedal Edema Additional comments: 2+ LE pulses bilaterally. - Neurological Exam Neurological Exam: Alert, Awake, CN II-XII Intact, Oriented x3 - Psychiatric Exam Psychiatric exam: Normal Affect, Normal Mood - Skin Skin Exam: Dry, Intact, Warm Assessment and Plan - Assessment and Plan (Free Text) Assessment: 57F w. PMH of HTN presented to [facility] [place] on 01/29 w/ CC of bloody BM and abdominal pain; subsequently admitted for management of colitis. Plan: Acute Colitis CTAP - mural thickening throughout descending colon and splenic flexture consistent w/ colitis Patient initally kept NPO on IVF w/ IVABx; Patient is advanced to Full liquid diet IVF Dc'd today C/w Flagyl/Rocephin at this time CDiff negative FOBT + Culture pending Patient to undergo elective colonoscopy as per GI Hx HTN Patient has been normotensive w/o use of antihypertensive medication while admitted We will continue to monitor at this time Will resume home Rx when appropriate GI/DVT ppx Protonix 40 IVp daily SCDs Patient seen and examined w/ attending physician Dr. Theresa Batres DO PGY1 Internal Medicine Curriculum Director - Pager [phone] <Theresa Batres R - Last Filed: 02/05/18 15:24> Objective - Vital Signs/Intake and Output Vital Signs (last 24 hours): Temp Pulse Resp BP Pulse Ox 99.2 F 85 18 145/95 H 96 02/02/18 14:00 02/02/18 14:00 02/02/18 14:00 02/02/18 14:00 02/02/18 14:00 - Labs Labs: 02/02/18 06:40 02/02/18 06:40 Attending/Attestation - Attestation I have personally seen and examined this patient.: Yes I have fully participated in the care of the patient.: Yes I have reviewed all pertinent clinical information, including history, physical exam and plan: Yes Notes (Text): Patient seen and examined by me with resident at 11:30AM on 01/31/18 with resident. Case including HPI, physical exam, and assessment and plan discussed with resident. Agree with above with following additions/corrections. Patient is a 57 year old female with past medical history significant for hypertension that presented to the emergency room with bloody stools and abdo grecia pain. Patient states she is feeling better. Abdominal pain has improved. Pain is mostly on left side of abdomen and does not radiate. Pain comes and goes. Patient denies any bowel movements today. She is tolerating diet. No nausea or vomiting. No chest pain or shortness of breath. No headaches or dizziness. No fevers or chills. No dysuria. Physical exam: Gen: Awake and alert lying in bed in no acute distress HEENT: Normocephalic, atraumatic. Extraocular muscles intact, pupils equal react rangel. No scleral icterus. Oropharynx is pink and moist. No pharyngeal erythema or exudate appreciated. Neck is supple. Cardiovascular: Normal rhythm. Normal S1, S2. No murmurs, rubs, or gallops appreciated Pulmonary: Normal respiratory effort. No rhonchi, rales, or wheezing appreciated. Gastrointestinal: Soft. Nondistended. Positive left sided abdominal tenderness with palpation. Positive bowel sounds all 4 quadrants, no guarding. Musculoskeletal: Normal range of motion all extremities. No calf tenderness. No edema noted. Central nervous system: AAO x 3. CN2-12 grossly intact. Dermatologic: Skin warm and dry. Assessment and plan: Patient is a 57 year old female with past medical history s ignificant for hypertension that presented to the emergency room with bloody stools and abdominal pain. 1. Abdominal pain. Colitis. CT abd/pelvis per radiologist showed severe mural thickening throughout the descending colon and splenic flexure consistent with colitis. Continue flagyl and rocephin. Stool for c-diff negative. Stool for occult blood positive. Continue to advance diet per GI. GI following, recommendations appreciated. Patient to have colonoscopy as outpatient. 2. Leukocytosis. Improving. Secondary to Colitis. Continue to monitor. Pending blood culture results. 3. History of hypertension. Home losartan held for now as patients blood pressure within normal limits and on the lower side. Case discussed in detail with patient regarding current diagnosis and treatment plan. All questions answered.
[2018-02-01] MEDS: metroNIDAZOLE IV 500 mg/100 ml 500 MG/100 ML BAG IVPB SCH ×3 (05:51→21:42)
--- NOTE | 2018-02-01 07:08 | CP.PCM.PN ---
<Randall Batres - Last Filed: 02/01/18 22:32> Subjective - Date & Time of Evaluation Date of Evaluation: 02/01/18 Time of Evaluation: 07:08 - Subjective Subjective: Randall Batres DO PGY1 - Internal Medicine Signal Inspector [facility] Progress Note Patient seen and examined at bedside. Patient reported soft BM yesterday with some blood on toilet paper however did not report dana blood or melena. Denies fevers, chills, abd pain, n/v/d/c, cp, sob, palpitations, urinary discomfort. Remainder of 12 system ROS is negative at this time. Objective - Vital Signs/Intake and Output Vital Signs (last 24 hours): Temp Pulse Resp BP Pulse Ox 98 F 79 16 131/80 97 01/31/18 22:00 01/31/18 22:00 01/31/18 22:00 01/31/18 22:00 01/31/18 22:00 Intake and Output: 02/01/18 02/01/18 06:59 18:59 Intake Total 660 Balance 660 - Medications Medications: Current Medications Metronidazole (Flagyl) 500 mg in 100 mls @ 100 mls/hr IVPB Q8 [facility]; Protocol Last Admin: 02/01/18 05:51 Dose: 100 mls/hr Ceftriaxone Sodium (Rocephin 1 Gram Ivpb) 1 gm in 100 mls @ 100 mls/hr IVPB ESTER LY JAYSHREE; Protocol Last Admin: 01/31/18 09:46 Dose: 100 mls/hr Pantoprazole Sodium (Protonix Inj) 40 mg IVP DAILY [facility] Last Admin: 01/31/18 09:46 Dose: 40 mg - Labs Labs: 01/31/18 06:40 01/31/18 06:40 - Constitutional Appears: Well, Non-toxic, No Acute Distress - Head Exam Head Exam: ATRAUMATIC, NORMOCEPHALIC - Eye Exam Eye Exam: EOMI, Normal appearance, PERRL - ENT Exam ENT Exam: Mucous Membranes Moist - Respiratory Exam Respiratory Exam: Clear to Ausculation Bilateral, NORMAL BREATHING PATTERN. absent: Rales, Wheezes - Cardiovascular Exam Cardiovascular Exam: REGULAR RHYTHM, RRR, +S1, +S2. absent: Murmur - GI/Abdominal Exam GI & Abdominal Exam: Soft, Mild to minimal tenderness with deep palpation, Normal Bowel Sounds - Extremities Exam Extremities Exam: absent: Pedal Edema Additional comments: 2+ LE pulses bilaterally. - Neurological Exam Neurological Exam: Alert, Awake, CN II-XII Intact, Oriented x3 - Psychiatric Exam Psychiatric exam: Normal Affect, Normal Mood - Skin Skin Exam: Dry, Intact, Warm Assessment and Plan - Assessment and Plan (Free Text) Assessment: 57F w. PMH of HTN presented [place] [facility] [place] on [place] w/ CC of bloody BM and abdominal pain; subsequently admitted for management of colitis. She has been tolerating her diet well and thus has been advanced to full heart healthy diet today. Initial blood culture is now growing gram positive cocci on day 3. Plan: Acute Colitis CTAP - mural thickening throughout descending colon and splenic flexture consistent w/ colitis Patient diet has been advanced from NPO to full diet at this time C/w Flagyl/Rocephin at this time CDiff negative FOBT + Stool Culture pending Patient to undergo elective colonoscopy as per GI; Continue to ADAT as per GI. Bacteremia vs Contominant Afebrile w/ resolving WBC BCX 1/2 positive on day 3 Will repeat Cx Start vancomycin ID Following, Appreciate reccs Hx HTN Patient has been normotensive w/o use of antihypertensive medication while admitted We will continue to monitor at this time Will resume home Rx when appropriate GI/DVT ppx Protonix 40 IVp daily SCDs Patient seen and examined w/ attending physician Dr. Theresa Batres DO PGY1 Internal Medicine Signal Inspector - Pager [phone] <Theresa Batres R - Last Filed: 02/05/18 15:30> Objective - Vital Signs/Intake and Output Vital Signs (last 24 hours): Temp Pulse Resp BP Pulse Ox 99.2 F 85 18 145/95 H 96 02/02/18 14:00 02/02/18 14:00 02/02/18 14:00 02/02/18 14:00 02/02/18 14:00 - Labs Labs: 02/02/18 06:40 02/02/18 06:40 Attending/Attestation - Attestation I have personally seen and examined this patient.: Yes I have fully participated in the care of the patient.: Yes I have reviewed all pertinent clinical information, including history, physical exam and plan: Yes Notes (Text): Patient seen and examined by me with resident at 10:35AM on 02/01/18 with resident. Case including HPI, physical exam, and assessment and plan discussed with resident. Agree with above with following additions/corrections. Patient is a 57 year old female with past medical history significant for hypertension that presented to the emergency room with bloody stools and abdominal pain. Patient states she is feeling much better. Denies any abdominal pain today. Patient states she did have a bowel movement that was soft and she did notice some blood. She is tolerating diet. No nausea or vomiting. No chest pain or shortness of breath. No headaches or dizziness. No fevers or chills. No dysuria. Physical exam: Gen: Awake and alert lying in bed in no acute distress HEENT: Normocephalic, atraumatic. Extraocular muscles intact, pupils equal reactive. No scleral icterus. Oropharynx is pink and moist. No pharyngeal eryt golden or exudate appreciated. Neck is supple. Cardiovascular: Normal rhythm. Normal S1, S2. No murmurs, rubs, or gallops appreciated Pulmonary: Normal respiratory effort. No rhonchi, rales, or wheezing appreciated. Gastrointestinal: Soft. Nondistended. Nontender. Positive bowel sounds all 4 quadrants, no guarding. Musculoskeletal: Normal range of motion all extremities. No calf tenderness. No edema appreciated. Central nervous system: AAO x 3. CN2-12 grossly intact. Dermatologic: Skin warm and dry. Assessment and plan: Patient is a 57 year old female with past medical history significant for hypertension that presented to the emergency room with bloody stools and abdominal pain. 1. Abdominal pain. Colitis. Continue flagyl and rocephin. Stool for c-diff negative. Stool for occult blood positive. Continue to advance diet per GI. GI following, recommendations appreciated. CT abd/pelvis per radiologist showed severe mural thickening throughout the descending colon and splenic flexure con sistent with colitis. Patient to have colonoscopy as outpatient. 2. Leukocytosis. Secondary to Colitis. Downtrending. Continue to monitor. Blood culture positive for gram positive cocci. Dose of vanco given. Repeat blood cultures pending. ID consulted, follow up recommendations. 3. History of hypertension. Home losartan held for now as patients blood pressure within normal limits and on the lower side. Case discussed in detail with patient regarding current diagnosis and treatment plan. All questions answered.
[2018-02-01 07:10] LABS: BASO # 0.05 K/mm3 (0.0-2.0); BASO % 0.4 % (0.0-3.0); EOS # 0.2 (0.0-0.7); EOS % 1.7 % (1.5-5.0); GRAN # 8.51 (1.4-6.5); GRAN % 74.2 % (50.0-68.0); HEMOGLOBIN 12.5 g/dL (12.0-16.0); LYMPH % 17.5 % (22.0-35.0); MEAN CELL VOLUME 91.3 fl (80.0-105.0); MEAN CORPUSCULAR HGB CONC 32.9 g/dl (31.0-37.0); MEAN PLATELET VOLUME 9.6 fl (7.0-11.0); MONO # 0.7 (0.1-0.6); MONO % 6.2 % (1.0-6.0); RBC 4.16 10^6/uL (3.5-6.1); RED CELL DISTRIBUTION WIDTH 13.5 % (11.5-14.5); WHITE BLOOD COUNT 11.5 10^3/ul (4.5-11.0)
[2018-02-01 07:20] LABS: ALB/GLOB RATIO 1.2 (1.1-1.8)
[2018-02-01 07:23] LABS: ALBUMIN 3.7 g/dL (3.0-4.8); ALT/SGPT 24 U/L (7-56); AST/SGOT 32 U/L (14-36); BLOOD UREA NITROGEN 10 mg/dL (7-21); CALCIUM 9.2 mg/dL (8.4-10.5); GFR NON-AFRICAN AMERICAN > 60
[2018-02-01] MEDS: cefTRIAXone 1 gm 1 GM/100 ML BAG IVPB SCH (09:57)
[2018-02-01] MEDS: Vancomycin 1gm in NS 250ml 1 GM/250 ML BAG IVPB SCH ×2 (10:43→23:38)
[2018-02-01 15:34] VITALS: RESP 18
--- NOTE | 2018-02-01 21:33 | CP.PCM.CON ---
History of Present Illness - History of Present Illness History of Present Illness: 57 year old female with PMH of HTN, S/P came in to [facility] [place] complaining of abdominal pain, bloating as well as loose stools which were also bloody. Prior to this the patient states that she ate chicken soup. She denies having fever or chills, no travel outside of [place] in the past 3 months, no dysuria, no headache or dizziness , no chest pain, no SOB, no cough or colds. CT scan of the abdomen and pelvis showed let sided colitis. She has been started on antibiotics but her blood cx are now showing gram positive cocci. Infectious Diseases consult is requested to further evaluate and manage. Review of Systems - Review of Systems All systems: reviewed and no additional remarkable complaints except (as per HPI) Past Patient History - Infectious Disease Hx of Infectious Diseases: None - Tetanus Immunizations Tetanus Immunization: Unknown - Past Social History Smoking Status: Never Smoked - CARDIAC Hx Hypertension: Yes Hx Pacemaker: No - PULMONARY Hx Respiratory Disorders: No - NEUROLOGICAL Hx Paralysis: No - HEENT Hx HEENT Problems: No - RENAL Hx Chronic Kidney Disease: No - ENDOCRINE/METABOLIC Hx Endocrine Disorders: No - HEMATOLOGICAL/ONCOLOGICAL Hx Blood Transfusions: No Hx Blood Transfusion Reaction: No - INTEGUMENTARY Hx Dermatological Problems: No - MUSCULOSKELETAL/RHEUMATOLOGICAL Hx Musculoskeletal Disorders: No - GASTROINTESTINAL Hx Gastroesophageal Reflux: Yes - GENITOURINARY/GYNECOLOGICAL Hx Genitourinary Disorders: No - PSYCHIATRIC Hx Emotional Abuse: No Hx Physical Abuse: No Hx Substance Use: No - SURGICAL HISTORY Hx Surgeries: Yes - ANESTHESIA Hx Anesthesia Reactions: No Hx Malignant Hyperthermia: No Meds Allergies/Adverse Reactions: Allergies Allergy/AdvReac Type Severity Reaction Status Date / Time No Known Allergies Allergy Verified 12/15/12 17:02 - Medications Medications: Current Medications Metronidazole (Flagyl) 500 mg in 100 mls @ 100 mls/hr IVPB Q8 JAYSHREE; Protocol Last Admin: 02/01/18 05:51 Dose: 100 mls/hr Ceftriaxone Sodium (Rocephin 1 Gram Ivpb) 1 gm in 100 mls @ 100 mls/hr IVPB DAILY JAYSHREE; Protocol Last Admin: 02/01/18 09:57 Dose: 100 mls/hr Vancomycin HCl (Vancomycin 1gm) 1 gm in 250 mls @ 167 mls/hr IVPB Q12H JAYSHREE; Protocol Metronidazole (Flagyl) 500 mg in 100 mls @ 100 mls/hr IVPB Q8 JAYSHREE; Protocol Pantoprazole Sodium (Protonix Inj) 40 mg IVP DAILY [facility] Last Admin: 02/01/18 09:56 Dose: 40 mg Physical Exam - Constitutional Appears: Non-toxic, No Acute Distress - Head Exam Head Exam: NORMAL INSPECTION - Neck Exam Neck exam: Negative for: Meningismus - Respiratory Exam Respiratory Exam: Decreased Breath Sounds - Cardiovascular Exam Cardiovascular Exam: +S1, +S2 - GI/Abdominal Exam GI & Abdominal Exam: Soft. absent: Tenderness Results - Vital Signs Recent Vital Signs: Last Vital Signs Temp 97.6 F 02/01/18 06:00 Pulse 71 02/01/18 06:00 Resp 20 02/01/18 06:00 BP 117/66 02/01/18 06:00 Pulse Ox 97 02/01/18 06:00 - Labs Result Diagrams: 02/01/18 06:30 02/01/18 06:30 Labs: Laboratory Results - last 24 hr 01/31/18 02/01/18 02/01/18 09:54 06:30 06:30 WBC 11.5 H D RBC 4.16 Hgb 12.5 Hct 38.0 MCV 91.3 MCH 30.0 MCHC 32.9 RDW 13.5 Plt Count 312 MPV 9.6 Gran % 74.2 H Lymph % (Auto) 17.5 L [place] % (Auto) 6.2 H Eos % (Auto) 1.7 Baso % (Auto) 0.4 Gran # 8.51 H Lymph # (Auto) 2.0 [place] # (Auto) 0.7 H Eos # (Auto) 0.2 Baso # (Auto) 0.05 Sodium 142 Potassium 3.9 Chloride 106 Carbon Dioxide 29 Anion Gap 12 BUN 10 Creatinine 0.7 Est GFR ( Amer) > 60 Est GFR (Non-Af Amer) > 60 Random Glucose 99 Calcium 9.2 Total Bilirubin 0.7 AST 32 ALT 24 Alkaline Phosphatase 97 Total Protein 6.8 Albumin 3.7 Globulin 3.1 Albumin/Globulin Ratio 1.2 Stool Occult Blood Positive H Assessment & Plan - Assessment and Plan (Free Text) Plan: Assessment Left sided colitis, now with gram positive cocci bacteremia HTN S/P Plan Started Vancomycin and will continue Rocephin and Flagyl pending identification and sensitivities of the bacteria in the blood - follow up stool cx will repeat blood cx will monitor clinically follow up further GI recommendations
--- NOTE | 2018-02-01 21:57 | CP.PCM.PN ---
<Fazal Purcell - Last Filed: 02/01/18 22:05> Subjective - Date & Time of Evaluation Date of Evaluation: 02/01/18 Time of Evaluation: 21:52 - Subjective Subjective: GI Progress Note Patient seen and examined this AM. Patient is sitting up in bed eating yogurt. Patient reports much improved abdominal discomfort. Tolerating diet, passing flatus and having bm. She indicates some blood when whiping but denies any dark tarry stool or melena. She denies dizziness, shortness of breath, chest pain. Objective - Vital Signs/Intake and Output Vital Signs (last 24 hours): Temp Pulse Resp BP Pulse Ox 98.5 F 85 18 121/77 96 02/01/18 14:00 02/01/18 14:00 02/01/18 14:00 02/01/18 14:00 02/01/18 14:00 Intake and Output: 02/01/18 02/02/18 18:59 06:59 Intake Total 600 Balance 600 - Medications Medications: Current Medications Ceftriaxone Sodium (Rocephin 1 Gram Ivpb) 1 gm in 100 mls @ 100 mls/hr IVPB DAILY JAY[facility]REE; Protocol Last Admin: 02/01/18 09:57 Dose: 100 mls/hr Vancomycin HCl (Vancomycin 1gm) 1 gm in 250 mls @ 167 mls/hr IVPB Q12H JAYSHREE; Protocol Last Admin: 02/01/18 10:43 Dose: Not Given Metronidazole (Flagyl) 500 mg in 100 mls @ 100 mls/hr IVPB Q8 JAYSHREE; Protocol Last Admin: 02/01/18 21:42 Dose: 100 mls/hr Pantoprazole Sodium (Protonix Inj) 40 mg IVP DAILY [facility]REE Last Admin: 02/01/18 09:56 Dose: 40 mg - Labs Labs: 02/01/18 06:30 02/01/18 06:30 - Constitutional Appears: Non-toxic, No Acute Distress - Head Exam Head Exam: ATRAUMATIC, NORMAL INSPECTION, NORMOCEPHALIC - Eye Exam Eye Exam: EOMI, PERRL - ENT Exam ENT Exam: Mucous Membranes Moist - Respiratory Exam Respiratory Exam: Clear to Ausculation Bilateral, NORMAL BREATHING PATTERN - Cardiovascular Exam Cardiovascular Exam: REGULAR RHYTHM, +S1, +S2 - GI/Abdominal Exam GI & Abdominal Exam: Soft, Tenderness (left sided with deep palpation), Normal Bowel Sounds - Extremities Exam Extremities Exam: Normal Inspection - Neurological Exam Neurological Exam: Alert, Awake, Normal Gait, Oriented x3 Neuro motor strength exam: Left Upper Extremity: 5, Right Upper Extremity: 5, Left Lower Extremity: 5, Right Lower Extremity: 5 - Psychiatric Exam Psychiatric exam: Normal Affect, Normal Mood - Skin Skin Exam: Dry, Warm Assessment and Plan - Assessment and Plan (Free Text) Assessment: 57 year old female with past medical history of HTN with recent history of bloody bowel movements who was evaluated to have colitis as evidence by abdominal/pelvis CT. Patient now tolerating diet and symptoms resolving. Plan: Colitis HTN - CT/Abd Pelvis: diffuse left sided colitis, no obstruction, Diffuse div erticulosis. No discrete evidence of focal diverticulitis. Small amount of pelvic ascites - Diet as tolerated - Continue antibiotics as per primary - H/H stable, continue to monitor - FU stool studies: cdiff/culture - elective outpt colonoscopy - Further recommendations as per Dr. Daniel <Tien Daniel V - Last Filed: 02/01/18 23:34> Objective - Vital Signs/Intake and Output Vital Signs (last 24 hours): Temp Pulse Resp BP Pulse Ox 99.1 F 82 18 127/82 96 02/01/18 22:27 02/01/18 22:27 02/01/18 22:27 02/01/18 22:27 02/01/18 22:27 Intake and Output: 02/01/18 02/02/18 18:59 06:59 Intake Total 600 Balance 600 - Medications Medications: Current Medications Ceftriaxone Sodium (Rocephin 1 Gram Ivpb) 1 gm in 100 mls @ 100 mls/hr IVPB DAILY JAYSHREE; Protocol Last Admin: 02/01/18 09:57 Dose: 100 mls/hr Vancomycin HCl (Vancomycin 1gm) 1 gm in 250 mls @ 167 mls/hr IVPB Q12H JAYSHREE; Protocol Last Admin: 02/01/18 10:43 Dose: Not Given Metronidazole (Flagyl) 500 mg in 100 mls @ 100 mls/hr IVPB Q8 JAYSHREE; Protocol Last Admin: 02/01/18 21:42 Dose: 100 mls/hr Pantoprazole Sodium (Protonix Inj) 40 mg IVP DAILY [facility]AY[facility]REE Last Admin: 02/01/18 09:56 Dose: 40 mg - Labs Labs: 02/01/18 06:30 02/01/18 06:30 Attending/Attestation - Attestation I have personally seen and examined this patient.: Yes I have fully participated in the care of the patient.: Yes I have reviewed all pertinent clinical information, including history, physical exam and plan: Yes Notes (Text): This is an addendum to GI followup report dictated by the Chief Merchandising Officer. The patient was seen and evaluated earlier. Medical records, lab studies, imagings were reviewed. Last 24 hours events reviewed. Agreed with the above treatment plan as outlined in Chief Merchandising Officer 's notes with the addition of the following Clinically improving No further episodes of bleeding Advance the diet Complete 10 days treatment of antibiotics Elective colonoscopy 02/01/18 23:33
[2018-02-02] MEDS: metroNIDAZOLE IV 500 mg/100 ml 500 MG/100 ML BAG IVPB SCH ×2 (06:55→16:40)
[2018-02-02 07:02] LABS: BASO # 0.06 K/mm3 (0.0-2.0); BASO % 0.6 % (0.0-3.0); EOS # 0.2 (0.0-0.7); EOS % 2.2 % (1.5-5.0); GRAN # 7.19 (1.4-6.5); GRAN % 66.9 % (50.0-68.0); HEMOGLOBIN 13.2 g/dL (12.0-16.0); LYMPH # 2.5 (1.2-3.4); LYMPH % 22.9 % (22.0-35.0); MEAN CELL VOLUME 91.4 fl (80.0-105.0); MEAN CORPUSCULAR HEMOGLOBIN 30.6 pg (25.0-35.0); MEAN CORPUSCULAR HGB CONC 33.4 g/dl (31.0-37.0); MEAN PLATELET VOLUME 9.7 fl (7.0-11.0); MONO # 0.8 (0.1-0.6); MONO % 7.4 % (1.0-6.0); RBC 4.32 10^6/uL (3.5-6.1); RED CELL DISTRIBUTION WIDTH 13.4 % (11.5-14.5); WHITE BLOOD COUNT 10.7 10^3/ul (4.5-11.0)
[2018-02-02 07:17] LABS: ALB/GLOB RATIO 1.2 (1.1-1.8); ALT/SGPT 34 U/L (7-56); AST/SGOT 35 U/L (14-36); BLOOD UREA NITROGEN 13 mg/dL (7-21); CALCIUM 9.5 mg/dL (8.4-10.5); GFR NON-AFRICAN AMERICAN > 60
[2018-02-02] MEDS: Vancomycin 1gm in NS 250ml 1 GM/250 ML BAG IVPB SCH (09:51)
[2018-02-02] MEDS: cefTRIAXone 1 gm 1 GM/100 ML BAG IVPB SCH (09:51)
--- NOTE | 2018-02-02 10:58 | CP.PCM.PN ---
<Fazal Purcell - Last Filed: 02/02/18 10:54> Subjective - Date & Time of Evaluation Date of Evaluation: 02/02/18 Time of Evaluation: 10:56 - Subjective Subjective: Kang Jazzy PGY2 - GI Progress Note Patient seen and examined this AM. No acute events reported overnight. Patient indicates pain has resolved. She is tolerating diet and having bm without blood. Objective - Vital Signs/Intake and Output Vital Signs (last 24 hours): Temp Pulse Resp BP Pulse Ox 98.2 F 69 18 125/76 97 02/02/18 06:00 02/02/18 06:00 02/02/18 06:00 02/02/18 06:00 02/02/18 06:00 Intake and Output: 02/02/18 02/02/18 06:59 18:59 Intake Total 780 Balance 780 - Medications Medications: Current Medications Ceftriaxone Sodium (Rocephin 1 Gram Ivpb) 1 gm in 100 mls @ 100 mls/hr IVPB DAILY JAYSHREE; Protocol Last Admin: 02/02/18 09:51 Dose: 100 mls/hr Vancomycin HCl (Vancomycin 1gm) 1 gm in 250 mls @ 167 mls/hr IVPB Q12H JAYSHREE; Protocol Last Admin: 02/02/18 09:51 Dose: 167 mls/hr Metronidazole (Flagyl) 500 mg in 100 mls @ 100 mls/hr IVPB Q8 JAYSHREE; Protocol Last Admin: 02/02/18 06:55 Dose: 100 mls/hr Pantoprazole Sodium (Protonix Inj) 40 mg IVP DAILY JAY[facility]REE Last Admin: 02/02/18 09:51 Dose: 40 mg - Labs Labs: 02/02/18 06:40 02/02/18 06:40 - Constitutional Appears: No Acute Distress - Head Exam Head Exam: ATRAUMATIC, NORMAL INSPECTION, NORMOCEPHALIC - Eye Exam Eye Exam: EOMI, PERRL - ENT Exam ENT Exam: Mucous Membranes Moist - Neck Exam Neck Exam: Full ROM - Respiratory Exam Respiratory Exam: Clear to Ausculation Bilateral, NORMAL BREATHING PATTERN - Cardiovascular Exam Cardiovascular Exam: REGULAR RHYTHM, +S1, +S2 - GI/Abdominal Exam GI & Abdominal Exam: Soft, Normal Bowel Sounds. absent: Guarding, Rigid, Mass - Extremities Exam Extremities Exam: Normal Inspection - Neurological Exam Neurological Exam: Alert, Awake, Normal Gait Neuro motor strength exam: Left Upper Extremity: 5, Right Upper Extremity: 5, Left Lower Extremity: 5, Right Lower Extremity: 5 - Psychiatric Exam Psychiatric exam: Normal Affect, Normal Mood - Skin Skin Exam: Dry, Intact Assessment and Plan - Assessment and Plan (Free Text) Assessment: 57 year old female with past medical history of HTN with recent history of bloody bowel movements who was evaluated to have colitis as evidence by abdominal/pelvis CT. Patient now tolerating diet and symptoms resolving. She denies any more bloody BM in past 24 hours Plan: Colitis HTN - CT/Abd Pelvis: diffuse left sided colitis, no obstruction, Diffuse diverticulosis. No discrete evidence of focal diverticulitis. Small amount of pelvic ascites - Diet as tolerated - Continue antibiotics as per primary, complete 10 day course - H/H stable, continue to monitor - C. diff Ag and toxin negative - elective outpt colonoscopy - Further recommendations as per Dr. Daniel <Tien Daniel V - Last Filed: 02/03/18 00:21> Objective - Vital Signs/Intake and Output Vital Signs (last 24 hours): Temp Pulse Resp BP Pulse Ox 99.2 F 85 18 145/95 H 96 02/02/18 14:00 02/02/18 14:00 02/02/18 14:00 02/02/18 14:00 02/02/18 14:00 Intake and Output: 02/02/18 02/03/18 18:59 06:59 Intake Total 480 Balance 480 - Labs Labs: 02/02/18 06:40 02/02/18 06:40 Attending/Attestation - Attestation I have personally seen and examined this patient.: Yes I have fully participated in the care of the patient.: Yes I have reviewed all pertinent clinical information, including history, physical exam and plan: Yes Notes (Text): This is an addendum to GI followup report dictated by the Peoplesoft Analyst. The patient was seen and evaluated earlier. Medical records, lab studies, imagings were reviewed. Last 24 hours events reviewed. Agreed with the above treatment plan as outlined in Peoplesoft Analyst 's notes with the addition of the following Patient clinically better Tolerating diet No further episodes of bleeding Colitis Complete the antibiotics course Followup with the PCP 02/03/18 00:20
[2018-02-02 14:56] VITALS: BP 145/95; PULSE 85; TEMP 99.2; O2SAT 96
--- NOTE | 2018-02-02 18:49 | CP.PCM.PN ---
Subjective - Date & Time of Evaluation Date of Evaluation: 02/02/18 Time of Evaluation: 13:55 - Subjective Subjective: Patient feels better, no abdominal pain, no nausea or vomiting, no diarrhea, feels better, no abdominal bloating. Objective - Vital Signs/Intake and Output Vital Signs (last 24 hours): Temp Pulse Resp BP Pulse Ox 98.5 F 85 18 121/77 96 02/01/18 14:00 02/01/18 14:00 02/01/18 14:00 02/01/18 14:00 02/01/18 14:00 Intake and Output: 02/01/18 02/02/18 18:59 06:59 Intake Total 600 Balance 600 - Medications Medications: Current Medications Ceftriaxone Sodium (Rocephin 1 Gram Ivpb) 1 gm in 100 mls @ 100 mls/hr IVPB DAILY [facility]; Protocol Last Admin: 02/01/18 09:57 Dose: 100 mls/hr Vancomycin HCl (Vancomycin 1gm) 1 gm in 250 mls @ 167 mls/hr IVPB Q12H JAYSHREE; Pr otocol Last Admin: 02/01/18 10:43 Dose: Not Given Metronidazole (Flagyl) 500 mg in 100 mls @ 100 mls/hr IVPB Q8 JAYSHREE; Protocol Last Admin: 02/01/18 15:02 Dose: 100 mls/hr Pantoprazole Sodium (Protonix Inj) 40 mg IVP DAILY [facility]REE Last Admin: 02/01/18 09:56 Dose: 40 mg - Labs Labs: 02/01/18 06:30 02/01/18 06:30 - Constitutional Appears: Non-toxic, No Acute Distress - Head Exam Head Exam: NORMAL INSPECTION - Respiratory Exam Respiratory Exam: Decreased Breath Sounds - Cardiovascular Exam Cardiovascular Exam: +S1, +S2 - GI/Abdominal Exam GI & Abdominal Exam: Soft. absent: Tenderness Assessment and Plan - Assessment and Plan (Free Text) Plan: Assessment Left sided colitis, clinically improving Micrococcus in blood cx, most likely contamination HTN S/P Plan we can d/c Vancomycin and patient is on Rocephin and Flagyl - when ready to be discharged, can be switched to PO Vantin and Flagyl
--- NOTE | 2018-02-02 22:36 | CP.PCM.DIS ---
Provider - Provider Date of Admission: 01/29/18 23:48 Attending physician: Theresa Batres DO Primary care physician: Dr. Theresa Batres DO Consults: KAJAL - Sivakumar Daniel Time Spent in preparation of Discharge (in minutes): 45 Diagnosis - Discharge Diagnosis (1) Abdominal pain Status: Acute (2) Colitis Status: Acute (3) HTN (hypertension) Status: Acute Hospital Course - Lab Results Lab Results: Micro Results 01/29/18 21:40 Blood Blood Culture - Preliminary NO GROWTH AFTER 4 DAYS 01/31/18 09:54 Stool Stool Culture - Final NO SALMONELLA, SHIGELLA OR CAMPYLOBACTER ISOLATED. 01/31/18 09:54 Stool C. difficile Antigen & Toxins A,B - Final 02/01/18 09:30 Blood Blood Culture - Preliminary NO GROWTH AFTER 24 HOURS 02/01/18 09:15 Blood Blood Culture - Preliminary NO GROWTH AFTER 24 HOURS 01/29/18 21:00 Blood Blood Culture - Final Micrococcus Species 01/29/18 21:00 Blood Gram Stain - Final 01/29/18 21:50 Urine,Clean Catch Urine Culture - Final No Growth (<1,000 CFU/ML) Most Recent Lab Values WBC 10.7 10^3/ul (4.5-11.0) 02/02/18 06:40 RBC 4.32 10^6/uL (3.5-6.1) 02/02/18 06:40 Hgb 13.2 g/dL (12.0-16.0) 02/02/18 06:40 Hct 39.5 % (36.0-48.0) 02/02/18 06:40 MCV 91.4 fl (80.0-105.0) 02/02/18 06:40 MCH 30.6 pg (25.0-35.0) 02/02/18 06:40 MCHC 33.4 g/dl (31.0-37.0) 02/02/18 06:40 RDW 13.4 % (11.5-14.5) 02/02/18 06:40 Plt Count 337 10^3/uL (120.0-450.0) 02/02/18 06:40 MPV 9.7 fl (7.0-11.0) 02/02/18 06:40 Gran % 66.9 % (50.0-68.0) 02/02/18 06:40 Lymph % (Auto) 22.9 % (22.0-35.0) 02/02/18 06:40 [place] % (Auto) 7.4 % (1.0-6.0) H 02/02/18 06:40 Eos % (Auto) 2.2 % (1.5-5.0) 02/02/18 06:40 Baso % (Auto) 0.6 % (0.0-3.0) 02/02/18 06:40 Gran # 7.19 (1.4-6.5) H 02/02/18 06:40 Lymph # (Auto) 2.5 (1.2-3.4) 02/02/18 06:40 [place] # (Auto) 0.8 (0.1-0.6) H 02/02/18 06:40 Eos # (Auto) 0.2 (0.0-0.7) 02/02/18 06:40 Baso # (Auto) 0.06 K/mm3 (0.0-2.0) 02/02/18 06:40 Sodium 142 mmol/L (132-148) 02/02/18 06:40 Potassium 4.4 mmol/L (3.6-5.0) 02/02/18 06:40 Chloride 105 mmol/L (98-107) 02/02/18 06:40 Carbon Dioxide 29 mmol/L (21-33) 02/02/18 06:40 Anion Gap 12 (10-20) 02/02/18 06:40 BUN 13 mg/dL (7-21) 02/02/18 06:40 Creatinine 0.8 mg/dl (0.7-1.2) 02/02/18 06:40 Est GFR ( Amer) > 60 02/02/18 06:40 Est GFR (Non-Af Amer) > 60 02/02/18 06:40 Random Glucose 108 mg/dL (70-110) 02/02/18 06:40 Calcium 9.5 mg/dL (8.4-10.5) 02/02/18 06:40 Phosphorus 3.8 mg/dL (2.5-4.5) 01/30/18 06:30 Magnesium 2.2 mg/dL (1.7-2.2) 01/30/18 06:30 Total Bilirubin 0.7 mg/dL (0.2-1.3) 02/02/18 06:40 AST 35 U/L (14-36) 02/02/18 06:40 ALT 34 U/L (7-56) 02/02/18 06:40 Alkaline Phosphatase 96 U/L (38-126) 02/02/18 06:40 Total Protein 7.3 g/dL (5.8-8.3) 02/02/18 06:40 Albumin 4.0 g/dL (3.0-4.8) 02/02/18 06:40 Globulin 3.3 gm/dL 02/02/18 06:40 Albumin/Globulin Ratio 1.2 (1.1-1.8) 02/02/18 06:40 Lipase 67 U/L (23-300) 01/29/18 18:31 Procalcitonin 0.10 NG/ML (0.19-0.49) L 01/29/18 17:15 Urine Color Yellow (YELLOW) 01/29/18 21:40 Urine Appearance Clear (CLEAR) 01/29/18 21:40 Urine pH 6.0 (4.7-8.0) 01/29/18 21:40 Ur Specific [place] 1.010 (1.005-1.035) 01/29/18 21:40 Urine Protein Negative mg/dL (<30 mg/dL) 01/29/18 21:40 Urine Glucose (UA) Negative mg/dL (NEGATIVE) 01/29/18 21:40 Urine Ketones 40 mg/dL (NEGATIVE) H 01/29/18 21:40 Urine Blood Negative (NEGATIVE) 01/29/18 21:40 Urine Nitrate Negative (NEGATIVE) 01/29/18 21:40 Urine Bilirubin Negative (NEGATIVE) 01/29/18 21:40 Urine Urobilinogen 0.2 E.U./dL (<1 E.U./dL) 01/29/18 21:40 Ur Leukocyte Esterase Trace [place]il[place]/uL (NEGATIVE) H 01/29/18 21:40 Urine RBC TEST NOT PERFORMED 01/29/18 21:40 Urine WBC 5 - 10 /hpf (0-6) 01/29/18 21:40 Ur Epithelial Cells 6 - 8 /hpf (0-5) 01/29/18 21:40 Stool Occult Blood Positive (NEGATIVE) H 01/31/18 09:54 - Hospital Course Hospital Course: Randall Batres DO 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 Patient notes abdominal pain that began Monday night and resolved Monday afternoon during which she experienced 15 episodes of bloody stools. She noted intermittent bloody, non-dark stools which are associated with clots. CT abdomen pelvis in ED showed severe mural thickening throughout the descending colon and splenic flexure consistent with colitis. Patient was subsequently admitted for management of acute colitis. Her CBC in ED showed leukocytosis. GI and ID were consulted, Patient was started on metro 500 IVPB q8h and ceftriaxone 1gm IVPB daily. FOBT was positive. Stool sample was negative for C. difficile. Patient was initially kept NPO and then gradually advanced as tolerated to heart healthy diet. Blood cultures were positive on day 3 and patient was started on vancomycin. She was afebrile with resolving WBC. Repeat cultures were negative. Patient was normotensive throughout hospital stay without use of antihypertensive medication. On morning of discharge, patient was hemodynamically stable. Patient is afebrile. She is awake, alert, and oriented. Patient denies abdominal pain. She had a nonbloody BM today. She will undergo an elective colonoscopy as per GI recs. Remainder of 12 system ROS was negative. Medications were reconciled, and the following discharge instructions were given to the patient: You were admitted for inflammation of the colon Please follow up with [facility] February 22 at 2:30 PM with Doctor Rudd, Please bring your ID and Insurance card. If you arrive more than 15 minutes late your appointment will be cancelled and you will need to reschedule. An appointment to follow up with gastroenterology (stomach doctor) has been made for you through [facility] on April 06 at 9:00AM Please call [phone] to complete your [facility] registration Please complete the following medications: Flagyl (antibiotic) 500mg every 8 hours for 5 days (DO NOT DRINK ALCOHOL WHILE TAKING THIS MEDICATION IT WILL MAKE YOU SICK) Ceftin (antibiotic) 250mg every 12 hours for 5 days You may continue your home losartan If your symptoms return or new concerning symptoms arise please go to the nearest emergency department immediately ----- Patient is stable at this time for discharge - Date & Time of H&P Date of H&P: 01/30/18 Time of H&P: 01:20 Discharge Exam - Head Exam Head Exam: ATRAUMATIC, NORMAL INSPECTION, NORMOCEPHALIC - Eye Exam Eye Exam: EOMI, Normal appearance, PERRL - ENT Exam ENT Exam: Mucous Membranes Moist - Respiratory Exam Respiratory Exam: Clear to PA & Lateral, NORMAL BREATHING PATTERN, UNREMARKABLE. absent: Rales, Rhonchi, Wheezes, Respiratory Distress - Cardiovascular Exam Cardiovascular Exam: RRR, +S1, +S2, Systolic Murmur - GI/Abdominal Exam GI & Abdominal Exam: Normal Bowel Sounds, Soft, Unremarkable. absent: Tenderness - Extremities Exam Extremities exam: normal inspection, pedal pulses present - Neurological Exam Neurological exam: Alert, CN II-XII Intact, Oriented x3 - Psychiatric Exam Psychiatric exam: Normal Affect, Normal Mood - Skin Skin Exam: Dry, Intact, Normal Color, Warm Discharge Plan - Discharge Medications Prescriptions: Cefuroxime Axetil [Cefuroxime] 250 mg PO BID 5 Days #10 tablet metroNIDAZOLE [Flagyl] 500 mg PO Q8 5 Days #15 tab - Follow Up Plan Condition: STABLE Disposition: HOME/ ROUTINE Instructions: Diarrhea in Adolescents and Adults, Acute Abdominal Pain (DC), Acute Abdominal Pain (GEN) Additional Instructions: You were admitted for inflammation of the colon Please follow up with [facility] February 22 at 2:30 PM with Doctor Blaire, Please bring your ID and Insurance card. If you arrive more than 15 minutes late your appointment will be cancelled and you will need to reschedule. An appointment to follow up with gastroenterology (stomach doctor) has been made for you through [facility] on April 06 at 9:00AM Please call [phone] to complete your [facility] registration Please complete the following medications: Flagyl (antibiotic) 500mg every 8 hours for 5 days (DO NOT DRINK ALCOHOL WHILE TAKING THIS MEDICATION IT WILL MAKE YOU SICK) Ceftin (antibiotic) 250mg every 12 hours for 5 days You may continue your home losartan If your symptoms return or new concerning symptoms arise please go to the nearest emergency department immediately Referrals: Debora Rudd MD [Medical Doctor] -
== END 2018-02-02 18:13 | disposition home or self-care (01) | DRG 179 ==
LOC: ED 15:14 → ERH 23:48 → 5RNO 01-30 00:59
PROVIDERS: ADMIT Hospitalist; ATTEND Hospitalist
DX: K51.50 Left sided colitis without complications (principal); R18.8 Other ascites; I10 Essential (primary) hypertension; K57.30 Diverticulosis of large intestine without perforation or abscess without bleeding; K21.9 Gastro-esophageal reflux disease without esophagitis